=== PATIENT | female | born 1965 | race Caucasian/White ===

== ENCOUNTER 2017-02-14 04:00 | Inpatient (IN) | payer MEDICARE, OTHER ==
[~2017-02-14] VITALS: Ht 175.3 cm; Wt 65.8 kg
--- NOTE | ~2017-02-14 | CO ---
Unit #: [id number] #: [id number] Patient: ALISE WOLF [id number] [place] [address] [id number] I MR#: [id number] NAME: ALISE WOLF. ROOM: P207 Age: 51 Sex: F Admission Date: 02/14/2017 : 1965 Attending Physician: Virgil Langford M.D. Consultation Date: 02/16/2017 CONSULTATION REPORT HISTORY OF PRESENT ILLNESS Alise reports a history of 2 DVTs and factor V Leiden. She reports DVTs were 2 to 3 years ago and she had been on Coumadin, however, when her primary care provider 2 years ago, she stopped taking the Coumadin. She has not had any DVT or PE or any other clotting issues since then. She was given Coumadin 10 mg; however, her INR level did not improve. She has a history of gastric bypass with malabsorption syndrome. She currently has no complaints. PHYSICAL EXAMINATION CARDIAC: Regular rate and rhythm. No murmurs, gallops, or rubs. RESPIRATORY: Clear to auscultation bilaterally. ASSESSMENT AND PLAN Factor V Leiden. Due to her poor absorption and that she has not been on Coumadin in the past 3 years as well as the fact that she has difficulty with transportation and does not believe she can maintain Coumadin level checked once she is discharged. At this time, we will hold Coumadin. We will obtain neonatal social worker consult to help her obtain a primary care provider in [place] where she will follow up and receive treatment and likely that she may need Lovenox. Please notify if she has any chest pain, shortness of breath, swelling in any of her extremities or any other complaints. Dictated by... Fariba Spear/yuni TD: 02/18/2017 23:50 JOB #: [id number] CONSULTATION REPORT Page 1 of 1 X QIANA MITCHELL APRN X CONSULTATION REPORT
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
--- NOTE | ~2017-02-14 | PN ---
Unit #: [id number] #: [id number] Patient: PETRONA WOLF [id number] [facility] [address] [place] [address] [id number] I MR#: [id number] NAME: PETRONA WOLF ROOM: P207 Age: 51 Sex: F Admission Date: 02/14/2017 : 1965 Attending Physician: Virgil Langford M.D. Admitting Physician: Virgil Langford M.D. Primary Care Physician: Malik Doctor Not In System [facility] PROGRESS NOTES DATE 02/20/2017 DISCUSSION The patient continues to express interest in residential chemical dependence treatment. She has an interview with "[facility]" tomorrow, and it is our hope that she will be accepted to that facility. We continue current treatment. Dictated by... Virgil Langford M.D. CB/willard TD: 02/20/2017 13:55 JOB #: [id number] [facility] PROGRESS NOTES Page 1 of 1 X Virgil Langford MD X PROGRESS NOTE
--- NOTE | ~2017-02-14 | PN ---
Unit #: [id number] #: [id number] Patient: PETRONA WOLF [id number] [facility] [address] [place] [address] [id number] I MR#: [id number] NAME: PETRONA WOLF ROOM: P204 Age: 51 Sex: F Admission Date: 02/14/2017 : 1965 Attending Physician: Virgil Langford M.D. Admitting Physician: Virgil Langford M.D. Primary Care Physician: Generic Doctor Not In System [facility] PROGRESS NOTES DATE 02/16/2017 DISCUSSION The patient is seclusive to room today and is gently but firmly confronted regarding her failure to attend an on-unit therapeutic activity. She continues to endorse sadness but is requesting that double portions stating that her appetite is improved. Dictated by... Virgil Langford M.D. CB/crissy TD: 02/16/2017 18:37 JOB #: [id number] [facility] PROGRESS NOTES Page 1 of 1 X Virgil Langford MD X PROGRESS NOTE
--- NOTE | ~2017-02-14 | CO ---
Unit #: [id number] #: [id number] Patient: PETRONA WOLF [id number] [place] [address] [id number] Shira MR#: [id number] NAME: PETRONA WOLF. ROOM: 61 Age: 51 Sex: F Admission Date: 02/14/2017 : 1965 Attending Physician: Virgil Langford M.D. Primary Care Physician: Malik Doctor Not In System Consultation Date: 02/14/2017 CONSULTATION REPORT HISTORY OF PRESENT ILLNESS The patient reports she has a history of factor V Leiden diagnosed 4 years ago. She also has a history of stroke and history of DVT. She reports that she was prescribed Coumadin, however, stopped taking this about 2 years ago when her primary care provider and she has not restarted care with any other provider. She is not having any chest pain. No shortness of breath. No swelling in her legs and no other complaints. She also reports a gastric bypass 10 years ago and has a malabsorption syndrome and she drinks 4 beers daily and would like to continue this here as well. She has no other complaints. PHYSICAL EXAMINATION CARDIAC: Regular rate and rhythm. No murmurs, gallops, or rubs. RESPIRATORY: Clear to auscultation bilaterally. ASSESSMENT AND PLAN 1. History of stroke and factor V Leiden. We will restart Coumadin during admission. The patient will be required to follow up with primary care provider for refills. I will prescribe 7 days of Coumadin. Please notify prior to her discharge, so this prescription will be given. 2. Malabsorption syndrome. We will provide Boost for snacks while admitted. Dictated by... Fariba Spear/yuni TD: 02/15/2017 02:51 JOB #: [id number] CONSULTATION REPORT Page 1 of 1 X QIANA MITCHELL APRN CONSULTATION REPORT
--- NOTE | ~2017-02-14 | HP ---
Unit #: [id number] #: [id number] Patient: ALISE WOLF [id number] [place] [address] [id number] MR#: [id number] NAME: ALISE WOLF. ROOM: [facility] Age: 51 Sex: F Admission Date: 02/14/2017 : 1965 Attending Physician: Virgil Langford M.D. Admitting Physician: Virgil Langford M.D. Primary Care Physician: Generic Doctor Not In System HISTORY AND PHYSICAL HISTORY OF PRESENT ILLNESS Alise is a 51-year-old female admitted on 02/14/[address] [place] [address] for depression and suicidal ideation. PAST MEDICAL HISTORY 1. Stroke in 2013. 2. Factor V Leiden. 3. Malabsorption syndrome after a gastric bypass. 4. Lactose intolerance. 5. Hypoglycemia. PAST SURGICAL HISTORY 1. Gastric bypass. 2. Tonsillectomy. 3. Bilateral tubal ligation. ALLERGIES Sulfa drugs. SOCIAL HISTORY Smokes 1-1/2 packs of cigarettes daily. Has a history of alcohol use with her last use 5 years ago and history of IV heroin use. Her last use was 1 month ago. She is currently and living alone. FAMILY HISTORY Noncontributory. REVIEW OF SYSTEMS CONSTITUTIONAL: No fever or chills. HEENT: Denies any sore throat, ear pain or runny nose. CARDIOVASCULAR: Denies chest pain, irregular heart rhythm or palpitations. CHEST: Denies shortness of breath or cough. No hemoptysis. GASTROINTESTINAL: Denies nausea, vomiting, diarrhea or chronic constipation. ENDOCRINE: Denies history of increased thirst or urination. No recent significant weight loss or gain. GENITOURINARY: Denies dysuria, frequency, or hematuria. SKIN: Denies any rashes. HEMATOLOGIC: Denies history of increased bleeding or bruising. MUSCULOSKELETAL: Denies any hot, swollen joints. No generalized muscle pain. NEUROLOGIC: Denies problems with vision or speech. No frequent, severe headaches. No numbness, tingling or weakness in any extremities. Denies Unit #: [id number] #: [id number] Patient: ALISE WOLF loss of bladder or bowel control. CURRENT MEDICATIONS None. PHYSICAL EXAMINATION GENERAL: Alert, oriented, in no acute distress. VITAL SIGNS: Blood pressure 116/73, heart rate 54, respirations 16, temperature 98.8. HEIGHT: 5 feet 9. WEIGHT: 145 pounds. SKIN: Warm and dry without rash or lesion. HEENT: Normocephalic. TMs not viewed. Oral and nasal passages clear. Conjunctivae clear. PERRLA. EOMs intact. NECK: Supple without lymphadenopathy or thyromegaly. HEART: Regular rate and rhythm without murmur. LUNGS: Clear. ABDOMEN: Soft, nontender, without masses or hepatosplenomegaly. : Not done. EXTREMITIES: No evidence of cyanosis, clubbing or edema. Moves all without focal deficit. NEUROLOGICAL: Grossly within normal limits. Cranial Nerves: II: Visual suh are intact. III, IV AND : Extraocular movements are intact. Pupils are equal, round and reactive to light. V: Facial sensation is grossly normal. VII: Facial movements and expression are normal. VIII: Auditory acuity grossly intact. IX, X: Uvula is midline. Phonation is normal. XI: Patient shrugs shoulders and turns head normally. XII: Tongue protrudes in the midline. Sensory and Motor Function: Sensory and motor sensation is grossly normal. Motor: moves all extremities well. Coordination: Gait is normal. Deep Tendon Reflexes: Intact. IMPRESSION 1. Psychiatric admission. 2. Stroke. 3. Factor V Leiden. 4. Malabsorption syndrome. 5. Hypoglycemia. 6. Lactose intolerance. RECOMMENDATIONS PSYCHIATRIC: Per psychiatrist. MEDICAL: No contraindication to participate in facility's activities. MEDICAL PROGNOSIS Good. MEDICAL CONDITION Stable. Dictated by... Artem SpearPEdRRosanna Unit #: [id number] #: [id number] Patient: ALISE WOLF JERRI/crissy TD: 02/14/2017 19:58 JOB #: [id number] HISTORY AND PHYSICAL Page 1 of 1 X QIANA MITCHELL APRN HISTORY AND PHYSICAL
--- NOTE | ~2017-02-14 | PN ---
Unit #: [id number] #: [id number] Patient: PETRONA WOLF [id number] [facility] [address] [place] [address] [id number] I MR#: [id number] NAME: PETRONA WOLF ROOM: 61 Age: 51 Sex: F Admission Date: 02/14/2017 : 1965 Attending Physician: Virgil Langford M.D. Admitting Physician: Virgil Langford M.D. Primary Care Physician: Generic Doctor Not In System [facility] PROGRESS NOTES DATE 02/15/2017 DISCUSSION The patient is abed today complaining of significant nausea. We continue to follow her clotting status closely. The patient's participation within the therapeutic milieu has been less than optimal secondary to her complaints of nausea. I will ask the patient's social studies department chair to see her regarding transportation for the handicapped in the [facility], a program called "Wheels." Dictated by... Virgil Langford M.D. SHIN/willard TD: 02/15/2017 14:19 JOB #: [id number] [facility] PROGRESS NOTES Page 1 of 1 X Virgil Langford MD X PROGRESS NOTE
--- NOTE | ~2017-02-14 | PN ---
Unit #: [id number] #: [id number] Patient: PETRONA WOLF [id number] [facility] [address] [place] [address] [id number] I MR#: [id number] NAME: PETRONA WOLF ROOM: P204 Age: 51 Sex: F Admission Date: 02/14/2017 : 1965 Attending Physician: Virgil Langford M.D. Admitting Physician: Virgil Langford M.D. Primary Care Physician: Generic Doctor Not In System [facility] PROGRESS NOTES DATE 02/17/2017 DISCUSSION The patient exhibits little in the way of signs of symptoms of withdrawal. She is less than optimally active within the therapeutic milieu but offers no new complaints today. I have reviewed the internal medicine note regarding the patient's anticoagulation status and am greatly appreciative thereof. The patient is claiming a history of hypoglycemia, and I have discussed this with the physician's temporary administrative assistant. We will go ahead and check some Accu-Checks prior to formal consultation. Dictated by... Virgil Langford M.D. CB/willard TD: 02/17/2017 12:35 JOB #: [id number] [facility] PROGRESS NOTES Page 1 of 1 X Virgil Langford MD PROGRESS NOTE
--- NOTE | ~2017-02-14 | DS ---
Unit #: [id number] #: [id number] Patient: PETRONA WOLF [id number] [place] [address] [id number] I MR#: [id number] NAME: PETRONA WOLF. ROOM: P207 Age: 51 Sex: F Admission Date: 02/14/2017 : 1965 Discharge Date: Attending Physician: Virgil Langford M.D. Primary Care Physician: Generic Doctor Not In System DISCHARGE SUMMARY REASON FOR ADMISSION The patient is a 51-year-old white female admitted with a history of opioid dependence and depression. HOSPITAL COURSE The patient was initially admitted to [address] [place] [address] but was transferred to the [address] [place] [address] given her extent to substance abuse history. She was generally pleasant and cooperative and was started on Lexapro 10 mg daily to address depressive symptoms during her stay in the hospital it was learned that the patient has hepatitis C and she was informed of this prior to discharge. The patient was med seeking throughout her stay in the hospital and somewhat intrusive but generally no management problem. Her participation within the therapeutic milieu left much to be desired. By 02/23 arrangements have been made for the patient to go to "[facility]" for residential chemical dependence treatment. Discharge was ordered. FINAL DIAGNOSIS 1. Opioid use disorder 2. Dysthymic disorder 3. Hepatitis C 4. Factor V clotting abnormality DISPOSITION ON DISCHARGE The patient is discharged on the following medications: Lexapro 10 mg daily for depression, vistaril 50 mg q.6 hours p.r.n. anxiety, Neurontin 800 mg three times daily p.r.n. for pain, Colace 100 mg twice daily for constipation, nystatin 5 mg four times daily for thrush. No dietary or physical restrictions were placed on the patient at the time of discharge. Followup will take place through the auspices of [facility]. The patient prognosis is considered fair. Dictated by... Virgil Langford M.D. CB/jo TD: 02/23/2017 02:14 JOB #: [id number] Unit #: [id number] #: [id number] Patient: PETRONA WOLF DISCHARGE SUMMARY Page 1 of 1 X Virgil Langford MD DISCHARGE SUMMARY
--- NOTE | ~2017-02-14 | PN ---
Unit #: [id number] #: [id number] Patient: PETRONA WOLF [id number] [facility] [address] [place] [address] [id number] I MR#: [id number] NAME: PETRONA WOLF ROOM: P207 Age: 51 Sex: F Admission Date: 02/14/2017 : 1965 Attending Physician: Virgil Langford M.D. Admitting Physician: Virgil Langford M.D. Primary Care Physician: Generic Doctor Not In System [facility] PROGRESS NOTES DATE 02/21/2017 DISCUSSION The patient is abed, resting comfortably today. We have learned that she has been accepted for treatment at [facility] by the end of the week, and we will plan discharge at that point. Dictated by... Virgil Langford M.D. CB/willard TD: 02/21/2017 14:14 JOB #: [id number] [facility] PROGRESS NOTES Page 1 of 1 X Virgil Langford MD X PROGRESS NOTE
--- NOTE | ~2017-02-14 | PN ---
Unit #: [id number] #: [id number] Patient: PETRONA WOLF [id number] [facility] [address] [place] [address] [id number] I MR#: [id number] NAME: PETRONA WOLF ROOM: P207 Age: 51 Sex: F Admission Date: 02/14/2017 : 1965 Attending Physician: Virgil Langford M.D. Admitting Physician: Virgil Langford M.D. Primary Care Physician: Generic Doctor Not In System [facility] PROGRESS NOTES DATE 02/19/2017 DISCUSSION The patient exhibits no signs or symptoms of withdrawal and her mood seems improved. During today's interview she is more future oriented and hopes to go to the [facility] or [facility]. To this end I am hoping that patient's social service coordinator will see her today to begin arrangements as we do expect a.m. discharge. Dictated by... Virgil Langford M.D. CB/jo TD: 02/19/2017 22:18 JOB #: [id number] [facility] PROGRESS NOTES Page 1 of 1 X Virgil Langford MD X PROGRESS NOTE
[2017-02-15 09:38] LABS: BASOPHIL% 0.7 % (0-2.5); EOSINOPHIL# 0.1 X10e3 (0-0.7); HEMATOCRIT 38.7 % (35.0-45.0); HEMOGLOBIN 12.2 gm/dL (12.0-16.0); LYMPHOCYTE# 1.8 X10e3 (1.0-3.5); LYMPHOCYTE% 40.3 % (17.0-45.0); MEAN CELL VOLUME 88.8 FL (83-96); MEAN CORPUSCULAR HEMOGLOBIN 28.1 PG (28-34); MEAN CORPUSCULAR HGB CONC 31.7 g/dL (30-36); MEAN PLATELET VOLUME 8.8 FL (6.5-11.5); MONOCYTE# 0.4 X10e3 (0-1.0); MONOCYTE% 9.5 % (3.0-12.0); NEUTROPHIL# 2.1 X10e3 (1.5-7.1); NEUTROPHIL% 46.5 % (40-75); PLATELET COUNT 188 X10e3 (140-420); RED BLOOD COUNT 4.35 X10e (3.90-5.30); RED CELL DISTRIBUTION WIDTH 20.8 % (11.0-15.5); WHITE BLOOD COUNT 4.5 X10e3 (4.0-10.5)
[2017-02-15 09:46] LABS: INR 1.1; PROTHROMBIN TIME (PATIENT) 11.4 SECONDS (10.0-11.7)
[2017-02-15 09:53] LABS: DIFF IND NO
[2017-02-15 09:55] LABS: BILIRUBIN,TOTAL 0.7 mg/dL (0.2-2.0); CALCIUM SERUM 8.7 mg/dL (8.4-10.2); CREATININE SERUM 0.5 mg/dL (0.6-1.4); GLOM FILT RATE Estimated 113.7 mL/min (>60); POTASSIUM 3.9 mmol/L (3.5-5.1); PROTEIN TOTAL SERUM 5.8 g/dL (6.0-8.3)
[2017-02-17 13:39] LABS: URINE APPEARANCE CLEAR; URINE BILIRUBIN NEG (NEG); URINE BLOOD NEG (NEG); URINE COLOR YELLOW; URINE GLUCOSE NEG (NEG); URINE KETONE NEG (NEG); URINE LEUKOCYTE ESTERASE TRACE (NEG); URINE NITRATE NEG (NEG); URINE PROTEIN NEG (NEG); URINE SPECIFIC GRAVITY 1.012 (1.003-1.035); URINE UROBILINOGEN 0.2 MG/DL (NEG)
[2017-02-17 13:42] LABS: U HYALINE CASTS AUWI 0-2 /[LPF]; URBCS1 AUWI 0-2 /[HPF] (0-2); URINE BACTERIA AUWI NEG (NEGATIVE); URINE SQUAMOUS EPITHELIAL CELL OCC /[HPF]
[2017-02-17 14:17] LABS: AMPHETAMINE NEG (NEG); BARBITURATES NEG (NEG); BENZODIAZEPINES NEG (NEG); COCAINE NEG (NEG); MARIJUANA POS (NEG); OPIATES NEG (NEG); TRICYCLIC ANTIDEPRESSANTS NEG (NEG); U METHADONE NEG (NEG)
[2017-02-20 15:12] LABS: HA AB IGM (HEPPAN) Nonreactive (()); HB CORE AB IGM (HEPPAN) Nonreactive (Nonreactive); HB S AG (HEPPAN) Nonreactive (Nonreactive); HEP C AB (HEPPAN) Reactive (Nonreactive); HEP C AB SIGNAL TO CUTOFF 6.88 ratio (<1.00)
== END 2017-02-23 11:18 | DRG 885 ==
LOC: P2S 09:48 → P2L 09:48 → P2S 02-15 22:18
PROVIDERS: Specialist
DX: F33.1 Major depressive disorder, recurrent, moderate (principal); D68.51 Activated protein C resistance; R45.851 Suicidal ideations; K90.9 Intestinal malabsorption, unspecified; F11.10 Opioid abuse, uncomplicated; Z88.2 Allergy status to sulfonamides; F17.210 Nicotine dependence, cigarettes, uncomplicated; F34.1 Dysthymic disorder
CPT/HCPCS: 80053; 80074; 80307; 81003; 82947; 85025; 85610; 86592; 87522; 87806